=== PATIENT | female | born 1955 | race Caucasian/White ===

== ENCOUNTER 2017-07-03 16:05 | Emergency (ER) | payer MEDICAID ==
[~2017-07-03] VITALS: Ht 160 cm; Wt 58.3 kg
[~2017-07-03 16:05] MED LIST: ACET-2319 PO; CHLO25TA11 PO; POTA10TA36 PO
[2017-07-03 16:18] VITALS: BP 151/78
== END 2017-07-03 17:19 | disposition home or self-care (01) ==
LOC: ER 16:05
DX: S01.111A Laceration without foreign body of right eyelid and periocular area, initial encounter (principal); S80.211A Abrasion, right knee, initial encounter; S60.416A Abrasion of right little finger, initial encounter; G89.29 Other chronic pain; Z88.0 Allergy status to penicillin; Z79.899 Other long term (current) drug therapy; W01.0XXA Fall on same level from slipping, tripping and stumbling without subsequent striking against object, initial encounter; Y93.89 Activity, other specified; Y92.89 Other specified places as the place of occurrence of the external cause; Y99.8 Other external cause status
CPT/HCPCS: 99282; A6255; A6258; A6449; 99283